=== PATIENT | female | born 1995 | race Caucasian/White ===

== ENCOUNTER 2017-05-13 09:47 | Day surgery (SDC) | payer BC, OTHER, MEDICAID ==
[~2017-05-13] VITALS: Ht 170.2 cm; Wt 84.1 kg
[~2017-05-13 09:47] MED LIST: /ACETCOD2T PO; /MOM400 PO; ACET50TA PO; ANUS2.5C2 PR; COLA50CA3 PO; IBUP600T26 PO
[2017-05-13 10:24] LABS: CALCIUM OXALATE CRYSTALS SMALL
--- NOTE | 2017-05-13 12:18 | REP ---
CT abdomen and pelvis without IV or oral contrast: Renal stone protocol. History: Right-sided flank pain. No comparison study. CT findings: Preliminary digital station repairer radiograph is unremarkable. The lung bases are clear on axial CT images. The liver and the spleen are normal in size and homogeneous in texture. There is a focal calcified gallstone in the dependent portion the gallbladder. This gallstone measures 3 mm in diameter. No pancreatic abnormality is seen. No adrenal lesion is observed. There is a 4 mm calculus in the lower pole of the left kidney. No hydronephrosis is noted on the left. There is moderate right-sided hydronephrosis and hydroureter. There is a 5 mm obstructing right mid ureteral calculus at the level of the L4 vertebral body in the right ureter. No bladder calculus is seen. No uterine or ovarian abnormality is observed. No free fluid is seen. A normal appendix is observed. No abdominal wall defect is seen. No bony destructive lesion seen. Impression: 1. Moderate right-sided hydronephrosis and hydroureter due to a 5 mm right mid ureteral calculus at the level of the L4 vertebral body. 2. Intrarenal calculus lower pole left kidney, 4 mm in diameter, no left-sided hydronephrosis. 3. Cholelithiasis. Signed by Tuan Mcfarland MD 05/13/2017 01:26 P
[2017-05-13] MEDS ORDERED: NS 1,000 ML IV ONE (13:15)
[2017-05-13] MEDS ORDERED: cefTRIAXone SOD 1 GM in D5W 50 ML IV ONE (13:15)
[2017-05-13 13:50] LABS: BASO # 0.1 10^3/uL (0.0-0.2); BASO % 0.4 % (0.0-1.0); EOS # 0.2 10^3/uL (0.0-0.50); EOS % 1.3 % (0.0-3.0); IMMATURE GRANULOCYTE % 0.3 % (0-0); LYMPH # 3.1 10^3/uL (1.5-6.5); LYMPH % 22.5 % (24.0-44.0); MEAN CORPUSCULAR HEMOGLOBIN 27.4 pg (27.0-33.0); MEAN CORPUSCULAR HGB CONC 33.5 g/dl (32.0-36.5); MEAN CORPUSCULAR VOLUME 81.9 fl (80.0-96.0); MONO # 0.6 10^3/uL (0.0-0.8); MONO % 4.5 % (0.0-5.0); NEUTROPHILS # 9.6 10^3/uL (1.8-7.7); PLATELET COUNT, AUTOMATED 263 10^3/uL (150-450); RED CELL DISTRIBUTION WIDTH 13.4 % (11.5-14.5); WHITE BLOOD COUNT 13.5 10^3/uL (4.0-10.0)
[2017-05-13 14:06] LABS: ANION GAP 8 MEQ/L (8-16); BLOOD UREA NITROGEN 10 MG/DL (7-18); CARBON DIOXIDE LEVEL 26 MEQ/L (21-32); CHLORIDE LEVEL 106 MEQ/L (98-107); CREATININE FOR GFR 0.73 MG/DL (0.55-1.02); GLOMERULAR FILTRATION RATE > 60.0 (>60); GLUCOSE, FASTING 83 MG/DL (70-105); SODIUM LEVEL 140 MEQ/L (136-145)
--- NOTE | 2017-05-13 14:35 | ER ---
DATE OF CONSULTATION: 05/13/2017 This 21-year-old female was evaluated in consultation as requested by Dr. Dueñas on 05/13/2017 for her first episode of right renal colic. She developed her first episode of right renal colic overnight, plus/minus dysuria. Prior to presentation, she has a history of recurrent lower urinary tract infections (5 per year). At baseline, there is no history of voiding symptoms, gross hematuria, urinary tract infection, urolithiasis, flank pain, or constitutional symptoms. Past medical history is unremarkable. Review of systems negative for diabetes, hypertension, cardiac, or pulmonary pathology, thyroid problems, headaches, epilepsy, CVA, glaucoma, peptic ulcer disease, urolithiasis, cholelithiasis or blood borne diseases. She is on no medications. She is allergic to MACROBID. Socially, she is and has two children. She is a nonsmoker who consumes alcohol socially. Family history is significant for lung cancer and myocardial infarction on the maternal side. General examination revealed a comfortable individual. Her heart rate was 86, respiratory rate was 18, blood pressure was 131/75 and temperature was 98.6 degrees Fahrenheit. Palpation of the head and neck failed to reveal the presence of lymphadenopathy. Auscultation of the chest was clear, normal heart sounds. Examination of the back and abdomen were benign. A urinalysis (05/13/2017) demonstrated 2+ microhematuria, positive nitrites, 3+ leukocytes with a pH of 6.0. A urine beta hCG determination (05/13/2017) is negative. Computed tomography of the abdomen and pelvis without intravenous contrast (05/13/2017) demonstrated a right midureter 5 mm calculus and a left lower pole 4 mm calculus. Moderate right hydroureteronephrosis was noted. ASSESSMENT: 1. Right midureter calculus. 2. Left lower pole renal calculus. 3. Question of urinary tract infection. PLAN: The above findings were discussed with the patient, her family and emergency department providers. Following nothing by mouth status, cystoscopy, right retrograde ureteropyelography and double J stent insertion will be performed. A urine specimen for culture and sensitivity as well as serum hematologic and biochemical indices determination are requested. Intravenous ceftriaxone was provided by the emergency department. Following the procedure, she may be discharged home with ciprofloxacin 500 mg by mouth twice a day and will followup with Alen Thomas MD in one week with a KUB radiograph. Should you require additional information, please do not hesitate to contact me. Thanking you for the confidence of your referral.
[2017-05-13] MEDS ORDERED: CONRAY-60 60% 50ML VIAL (Q9961) As Ordered ONE (14:37)
[2017-05-13] MEDS ORDERED: PROPOFOL 200 MG/20 ML VIAL As Ordered ONE (14:44)
[2017-05-13] MEDS ORDERED: LIDOCAINE 2% INJ 100 MG/5 ML SDV (FOR ANES.) As Ordered ONE (14:44)
[2017-05-13] MEDS ORDERED: fentaNYL 100 MCG/2 ML INJECTION (J3010) As Ordered ONE (14:45)
[2017-05-13] MEDS ORDERED: MIDAZOLAM INJ 2 MG/2 ML VIAL (J2250) As Ordered ONE (14:45)
[2017-05-13] MEDS ORDERED: CIPR500T19 PO (15:43)
[2017-05-13] MEDS ORDERED: PERCOCET 5MG/325MG TAB As Ordered ONE (15:47)
[2017-05-13 16:00] VITALS: BP 138/80
[2017-05-13] MEDS ORDERED: fentaNYL 100 MCG/2 ML INJECTION (J3010) IV PRN (16:00)
[2017-05-13] MEDS ORDERED: ONDANSETRON 4MG/2ML VIAL (J2405) IV PRN ×2 (16:00)
[2017-05-13] MEDS ORDERED: LR 1,000 ML IV SCH ×2 (16:00)
[2017-05-13] MEDS ORDERED: PERCOCET 5MG/325MG TAB PO PRN (16:00)
[2017-05-13 16:30] VITALS: BP 135/79
--- NOTE | 2017-05-14 05:38 | REP ---
Retrograde pyelogram: Six views. History: Retrograde stent placement in the OR on the right side. 14 seconds of fluoroscopy time is reported. Findings: A sequence of six last image hold fluoroscopic spot radiographs of the abdomen document double pigtail right ureteral stent placement after ureteral cannulation and contrast injection. Signed by Tuan Mcfarland MD 05/14/2017 08:42 A
--- NOTE | 2017-05-14 05:53 | RO ---
DATE OF PROCEDURE: 05/13/2017 PREOPERATIVE DIAGNOSES: 1. Right mid ureter calculus. 2. Urinary tract infection. POSTOPERATIVE DIAGNOSES: 1. Right proximal ureter calculus. 2. Urinary tract infection. PROCEDURE: Cystoscopy, right retrograde ureteropyelography, 6 [place] Martin JJ stent insertion, fluoroscopy. SURGEON: Dr. Len Kaur ROCK CLIMBING INSTRUCTOR: None. ANESTHESIA: Monitored anesthesia care (MAC). COMPLICATIONS: None. ESTIMATED BLOOD LOSS: Zero mL. PROCEDURE: In lithotomy position, the patient was prepped and draped in the usual fashion. Plain fluoroscopy of the upper urinary tract failed to confirm the presence of a radiopaque calculus. A 21 [place] rigid Olympus cystoscope was advanced into the urinary bladder under direct vision. A urine specimen for culture and sensitivity was obtained. Rios-cystoscopy revealed normal ureteric orifices bilaterally and normal urothelium with no evidence of tumor, active bleeding, or urolithiasis. A normal bladder neck and urethra were noted. A 5 [place] open ended ureteral catheter was used to intubate the right ureteric orifice. Retrograde ureteropyelography confirmed a normal caliber distal and mid ureter with proximal ureter filling defect. Proximal to this, mild hydroureteronephrosis was noted. The retrograde was performed gently to minimize the risk of pyelovenous backflow. Under fluoroscopy, a 0.035 Glidewire was advanced up in the right renal pelvis under fluoroscopy. The 5 [place] open ended ureteral catheter was removed and a 6 [place] Martin JJ stent was advanced under fluoroscopy and direct vision. Its position was confirmed. Prior to removal of the instruments, the bladder was drained. At the conclusion of the procedure, sponge and instrument counts were correct. Estimated blood loss for the procedure was zero mL. In the recovery room, the patient was alert and stable. DISPOSITION: Exit prescription (ciprofloxacin) provided. KUB radiograph and office visit with William in 1 week.
[2017-05-30] MEDS ORDERED: FLOM5CAP PO (08:16)
[2017-05-30] MEDS ORDERED: PERC5TAB12 PO (08:16)
[2017-05-30] MEDS ORDERED: NORE0.353 PO (08:16)
== END 2017-05-13 16:00 | disposition home or self-care (01) ==
LOC: M ED 09:47 → M SDC 13:50
PROVIDERS: ATTEND Urology
DX: N20.1 Calculus of ureter (principal); N39.0 Urinary tract infection, site not specified; Z88.8 Allergy status to other drugs, medicaments and biological substances
CPT/HCPCS: 52332; 74176; 74420; 80048; 81001; 81025; 85025; 87088; 87186; 96374; 99284; C2617; J0696; J2250; J3010; Q9961

== ENCOUNTER 2017-06-06 06:17 | Day surgery (SDC) | payer BC, OTHER, MEDICAID ==
[~2017-06-06] VITALS: Ht 170.2 cm; Wt 83.6 kg
[~2017-06-06 06:17] MED LIST changes: +CIPR500T19 PO; +FLOM5CAP PO; +NORE0.353 PO; +PERC5TAB12 PO
[2017-06-06] MEDS ORDERED: LR 1,000 ML IV SCH ×2 (06:30→09:30)
[2017-06-06 07:05] LABS: CONTROL LINE UCG INT CTR LINE PRESENT
[2017-06-06] MEDS ORDERED: CONRAY-60 60% 50ML VIAL (Q9961) As Ordered ONE (07:36)
[2017-06-06] MEDS ORDERED: dexameTHASONE 4 MG/ML 1ML VIAL (J1100) As Ordered ONE (08:03)
[2017-06-06] MEDS ORDERED: LIDOCAINE 2% INJ 100 MG/5 ML SDV (FOR ANES.) As Ordered ONE (08:03)
[2017-06-06] MEDS ORDERED: fentaNYL 100 MCG/2 ML INJECTION (J3010) As Ordered ONE ×2 (08:03→09:13)
[2017-06-06] MEDS ORDERED: MIDAZOLAM INJ 2 MG/2 ML VIAL (J2250) As Ordered ONE (08:03)
[2017-06-06] MEDS ORDERED: PROPOFOL 200 MG/20 ML VIAL As Ordered ONE (08:03)
[2017-06-06] MEDS ORDERED: ONDANSETRON 4MG/2ML VIAL (J2405) As Ordered ONE ×2 (08:13→09:13)
[2017-06-06] MEDS ORDERED: PERCOCET 5MG/325MG TAB As Ordered ONE (09:13)
[2017-06-06] MEDS: PERCOCET 5MG/325MG TAB PO PRN ×2 (09:15→09:45)
[2017-06-06] MEDS: fentaNYL 100 MCG/2 ML INJECTION (J3010) IV PRN ×4 (09:18→09:33)
[2017-06-06] MEDS ORDERED: PERCOCET 5MG/325MG TAB PO PRN ×2 (09:30)
[2017-06-06] MEDS ORDERED: ONDANSETRON 4MG/2ML VIAL (J2405) IV PRN (09:30)
--- NOTE | 2017-06-06 09:34 | REP ---
RETROGRADE PYELOGRAM: 06/06/2017. Clinical history: Nephrolithiasis. Findings: Seven images from C-arm fluoroscopy provided to Dr. Thomas of the urology division in this patient with nephrolithiasis. Initial images show a wire passing through the right ureter to the renal pelvis at the cannula in the ureter. The third image shows a wire and cannula removed on the right side and a wire passing into the left renal pelvis through which a cannula was passed. Contrast injected into the left collecting system and a double pigtail stent now present in the left ureter, coiled proximally in a nondilated renal pelvis and distally in the bladder. Fluoroscopy time 18 seconds. Signed by Milton Guzman MD 06/06/2017 01:27 P
[2017-06-06 10:42] VITALS: BP 140/86
--- NOTE | 2017-06-07 13:53 | RO ---
DATE OF PROCEDURE: 06/06/2017 PREPROCEDURE DIAGNOSIS: Bilateral kidney stones. POSTPROCEDURE DIAGNOSIS: Bilateral kidney stones. PROCEDURE: Cystoscopy, bilateral ureteroscopy with right-sided laser lithotripsy and bilateral basket extraction of stones, bilateral retrograde pyelogram with intraoperative interpretation of images, left ureteral stent placement, right ureteral stent removal. SURGEON: Alen Thomas MD CHANNELING MACHINE OPERATOR: None. ANESTHESIA: General. OPERATIVE INDICATIONS: This is a 21-year-old female who was brought to the operating room a few weeks ago for right-sided ureteral stent placement for obstructing proximal 5 mm stone and a urinary tract infection. Also, of note, she had a 5 mm left-sided kidney stone, which she thinks has dropped into the ureter recently as she is not having left flank pain. Decision was made to take her to the operating room today to try and take care of the stones on both sides. DESCRIPTION OF PROCEDURE: The patient was brought to the operating room and general anesthesia was induced. Prophylactic antibiotics were infused. She was then placed in dorsal lithotomy position, prepped and draped in the usual sterile fashion. A rigid cystoscope was inserted into the urethral meatus and advanced to the bladder. Once it was in the bladder, the previously placed stent was seen. The stent was then grasped and withdrawn from the right ureter until the distal end of the stent was seen protruding from the urethral meatus. I then advanced the wire up the right ureteral stent up the right collecting system. The stent was removed leaving the wire in place. At this point, I advanced a ureteral access sheath over the wire up the right collecting system and then, the stylette was removed and the wire was secured to the drape to serve as a safety wire. I then went up the ureteral access sheath with a flexible ureteroscope and I did not see any stones within the ureter. Within the lower pole calyx of the right kidney a 5 mm stone was seen. Given the shape of the stone, I had to fragment it into two different pieces using a 200 micron laser fiber and then both those pieces were removed with a basket. No other stones were seen within the right kidney. A retrograde pyelogram was performed and was negative for hydronephrosis or extravasation. Since the stent was in place for a few weeks, the ureter appeared to be sufficiently dilated and there was no scarring. I, therefore decided not to leave a new stent. At this point, the ureteroscope was withdrawn along with the access sheath, and no additional stones were seen within the ureter. At this point, I turned my attention to the left collecting system. A wire was advanced up the left collecting system. I then advanced the flexible ureteroscope up the left ureter and into the kidney. No stones were seen within the ureter. Within the kidney, a 5 mm stone was seen in the lower pole calyx. The stone was then grasped with a basket and it was removed in one piece. I examined the rest of the kidney and no stones were seen within the left kidney. A retrograde pyelogram was performed and it was negative for hydronephrosis or extravasation. As her ureter was not as dilated on this side, I did decide to leave the stent. At this point, the ureteroscope was withdrawn and the previously placed wire was utilized to advance a 6-[place] x 22-32 cm JJ ureteral stent up the left collecting system. The wire was then removed and there were adequate curls of the stent in the left renal pelvis and in the bladder. The bladder was then emptied of all fluid and this marked the conclusion of the procedure. The patient was then taken out of dorsal lithotomy position, awakened from anesthesia and transported to the recovery room in stable condition. ESTIMATED BLOOD LOSS: 0 mL. INTRAOPERATIVE COMPLICATIONS: None. SPECIMENS: Kidney stones. PLAN: The patient will followup in clinic in a few weeks for stent removal. MARCELA
== END 2017-06-06 11:04 | disposition home or self-care (01) ==
LOC: M SDC 06:17
PROVIDERS: ATTEND Urology
DX: N20.0 Calculus of kidney (principal); N39.0 Urinary tract infection, site not specified; R00.2 Palpitations; K21.9 Gastro-esophageal reflux disease without esophagitis; F41.9 Anxiety disorder, unspecified; Z79.899 Other long term (current) drug therapy; Z88.1 Allergy status to other antibiotic agents
CPT/HCPCS: 52332; 52352; 52356; 74420; 82360; 84703; 88300; C1769; C1894; C2617; J1100; J2250; J2405; J3010; Q9961

== ENCOUNTER 2017-10-09 14:02 | Emergency (ER) | payer BC, OTHER, MEDICAID ==
[2017-10-09] MEDS: NS 1,000 ML IV (15:15)
[2017-10-09] MEDS ORDERED: KETOROLAC 30 MG/ML VIAL (J1885) IV (15:15)
[2017-10-09 15:26] LABS: KETONE, URINE AUTO RFX NEGATIVE (NEGATIVE); LEUKOCYTE ESTERASE UR AUTO RFX NEGATIVE (NEGATIVE); MUCUS, URINE RFX SMALL (NEGATIVE); NITRITE, URINE AUTO RFX NEGATIVE (NEGATIVE); RBC, URINE AUTO RFX 1 /HPF (0-3); SPECIFIC GRAVITY UR AUTO RFX 1.009 (1.002-1.035); SQUAM EPITHELIAL CELL UR AURFX 0 /HPF (0-6); WBC, URINE AUTO RFX 0 /HPF (0-3)
[2017-10-09 15:40] LABS: BASO # 0.1 10^3/uL (0.0-0.2); BASO % 0.6 % (0.0-1.0); EOS # 0.3 10^3/uL (0.0-0.50); EOS % 2.5 % (0.0-3.0); HEMATOCRIT 40.5 % (36.0-47.0); HEMOGLOBIN 13.7 g/dl (12.0-16.0); IMMATURE GRANULOCYTE % 0.3 % (0-3.0); LYMPH # 3.5 10^3/uL (1.5-6.5); LYMPH % 27.6 % (24.0-44.0); MEAN CORPUSCULAR HEMOGLOBIN 27.4 pg (27.0-33.0); MEAN CORPUSCULAR HGB CONC 33.8 g/dl (32.0-36.5); MONO # 0.7 10^3/uL (0.0-0.8); MONO % 5.8 % (0.0-5.0); NEUTROPHILS % 63.2 % (36.0-66.0); PLATELET COUNT, AUTOMATED 285 10^3/uL (150-450); RED CELL DISTRIBUTION WIDTH 13.1 % (11.5-14.5); WHITE BLOOD COUNT 12.6 10^3/uL (4.0-10.0)
[2017-10-09] MEDS ORDERED: MORPHINE 2 MG/ML 1ML SYRINGE (J2270) As Ordered (15:44)
[2017-10-09] MEDS: MORPHINE 2 MG/ML 1ML SYRINGE (J2270) IV (15:51)
[2017-10-09 16:12] LABS: ALBUMIN 4.2 GM/DL (3.2-5.2); ALKALINE PHOSPHATASE 80 U/L (45-117); ALT/SGPT 23 U/L (12-78); ANION GAP 8 MEQ/L (8-16); AST/SGOT 11 U/L (7-37); BILIRUBIN,TOTAL 0.5 MG/DL (0.2-1.0); BLOOD UREA NITROGEN 10 MG/DL (7-18); CALCIUM LEVEL 9.1 MG/DL (8.5-10.1); CARBON DIOXIDE LEVEL 27 MEQ/L (21-32); CHLORIDE LEVEL 106 MEQ/L (98-107); CREATININE FOR GFR 0.72 MG/DL (0.55-1.30); GLOMERULAR FILTRATION RATE > 60.0 (>60); GLUCOSE, FASTING 87 MG/DL (70-100); LIPASE 131 U/L (73-393); POTASSIUM SERUM 3.7 MEQ/L (3.5-5.1); SODIUM LEVEL 141 MEQ/L (136-145); TOTAL PROTEIN 7.7 GM/DL (6.4-8.2)
== END 2017-10-09 17:04 | disposition home or self-care (01) ==
LOC: M ED 14:02
DX: N23 Unspecified renal colic (principal); K80.20 Calculus of gallbladder without cholecystitis without obstruction; Z87.442 Personal history of urinary calculi; Z88.1 Allergy status to other antibiotic agents
CPT/HCPCS: J2270

== ENCOUNTER → 2019-01-13 | Outpatient (CLI) | payer BC, OTHER ==
[~2019-01-13] MED LIST changes: -/ACETCOD2T PO; -/MOM400 PO; +ACET1TAB15 PO; -ACET50TA PO; +FLOM0.4C39 PO; -FLOM5CAP PO; +MAPA500T17 PO; +MILK10SU PO
--- NOTE | 2019-01-14 09:25 | REP ---
Focused bilateral breast sonography: History: Palpable abnormality at 12 o'clock in each breast. Sonographic findings: Scanning about the 12 o'clock area of each breast is performed. Heterogeneous fibroglandular background echotexture is seen. No cyst, mass, acoustic shadowing or architectural distortion is seen. Impression: BIRADS category one negative bilateral breast sonographic findings. Clinical follow-up is advised. This patient's estimated Tyrer-Cuzick lifetime risk assessment for the breast cancer is 12.2 %. Electronically Signed by Tuan Mcfarland MD 01/14/2019 09:17 A
== END ==
LOC: M RAD 17:50
PROVIDERS: ATTEND Advanced Practice Midwife
DX: N64.89 Other specified disorders of breast (principal)

== ENCOUNTER 2020-02-24 13:30 | Emergency (ER) | payer BC, OTHER | END 2020-02-24 14:50 | disposition left against medical advice (07) | LOC: M ED 13:30 | DX: Z53.20 Procedure and treatment not carried out because of patient's decision for unspecified reasons (principal) ==

== ENCOUNTER 2021-07-28 06:38 | Emergency (ER) | payer BC, OTHER ==
[~2021-07-28] VITALS: Ht 167.6 cm; Wt 88.6 kg
--- NOTE | 2021-07-28 08:05 | REP ---
INDICATION: slip, fall, twist COMPARISON: None. TECHNIQUE: AP, lateral, bilateral oblique views. FINDINGS: Lateral swelling. AP view demonstrates small focus of irregularity along the medial contour of the talus which is nonspecific but should be correlated with physical examination to exclude a subtle injury. Ankle mortise is otherwise intact and normal in appearance. No further acute fracture or dislocation is identified. Prominent os trigonum identified on lateral radiograph. IMPRESSION: Lateral swelling. As above. <Electronically signed by Rikki Cash > 07/28/21 [id number]
[2021-07-28 09:07] VITALS: BP 132/88
== END 2021-07-28 09:08 | disposition home or self-care (01) ==
LOC: M ED 06:38
DX: S93.401A Sprain of unspecified ligament of right ankle, initial encounter (principal); W18.49XA Other slipping, tripping and stumbling without falling, initial encounter; Y92.009 Unspecified place in unspecified non-institutional (private) residence as the place of occurrence of the external cause; Y93.9 Activity, unspecified; Y99.9 Unspecified external cause status; F17.200 Nicotine dependence, unspecified, uncomplicated; Z88.8 Allergy status to other drugs, medicaments and biological substances

== ENCOUNTER 2023-04-05 08:10 | Emergency (ER) | payer OTHER ==
[~2023-04-05] VITALS: Ht 167.6 cm; Wt 88.0 kg
[2023-04-05] MEDS ORDERED: IBUPROFEN 600MG TAB PO ONE (10:20)
[2023-04-05] MEDS ORDERED: dexAMETHasone 4 MG TAB PO ONE (10:20)
[2023-04-05] MEDS ORDERED: ACETAMINOPHEN 500 MG TAB PO ONE (10:20)
[2023-04-05] MEDS ORDERED: NEOM1SUS10 OTIC (10:27)
[2023-04-05 10:35] VITALS: BP 146/96; TEMP 98; O2SAT 98
== END 2023-04-05 10:37 | disposition home or self-care (01) ==
LOC: M ED 08:10
DX: H60.92 Unspecified otitis externa, left ear (principal); Z79.2 Long term (current) use of antibiotics

== ENCOUNTER → 2023-11-14 | Outpatient (REF) | payer MEDICAID ==
[~2023-11-14] MED LIST changes: +NEOM1SUS10 OTIC
[2023-11-15 12:06] LABS: Trichomonas vaginalis (AMP) NOT DETECTED (NEGATIVE)
[2023-11-15 12:30] LABS: GC DNA AMPLIFICATION NEGATIVE (NEGATIVE)
== END ==
LOC: M LAB REF 09:24
PROVIDERS: ATTEND Physician Assistant
DX: Z20.2 Contact with and (suspected) exposure to infections with a predominantly sexual mode of transmission (principal)

== ENCOUNTER 2023-12-04 19:55 | Emergency (ER) | payer MEDICAID ==
[~2023-12-04] VITALS: Ht 167.6 cm; Wt 85.0 kg
[2023-12-04 19:56] VITALS: BP 167/95; TEMP 97.3; O2SAT 100
== END 2023-12-04 21:59 | disposition left against medical advice (07) ==
LOC: M ED 19:55
DX: Z53.21 Procedure and treatment not carried out due to patient leaving prior to being seen by health care provider (principal)

== ENCOUNTER 2024-05-23 20:03 | Emergency (ER) | payer MEDICAID ==
[~2024-05-23] VITALS: Ht 167.6 cm; Wt 92.3 kg
[2024-05-23 20:06] VITALS: BP 145/79; TEMP 100.2; O2SAT 99
== END 2024-05-23 22:47 | disposition left against medical advice (07) ==
LOC: M ED 20:03
DX: Z53.21 Procedure and treatment not carried out due to patient leaving prior to being seen by health care provider (principal)

== ENCOUNTER 2025-05-25 10:32 | Emergency (ER) | payer MEDICAID, OTHER ==
[~2025-05-25] VITALS: Ht 167.6 cm; Wt 80.7 kg
[~2025-05-25 10:32] MED LIST changes: -FLOM0.4C39 PO; +TAMS-18 PO
[2025-05-25 11:31] LABS: KETONE, URINE AUTO RFX NEGATIVE (NEGATIVE); LEUKOCYTE ESTERASE UR AUTO RFX NEGATIVE (NEGATIVE); MUCUS, URINE RFX LARGE (NEGATIVE); NITRITE, URINE AUTO RFX NEGATIVE (NEGATIVE); RBC, URINE AUTO RFX TNTC /HPF (0-3); SQUAM EPITHELIAL CELL UR AURFX 2 /HPF (0-6); WBC, URINE AUTO RFX 4 /HPF (0-3)
[2025-05-25 12:54] LABS: BASO # 0.1 10^3/uL (0.0-0.2); BASO % 0.4 % (0.0-1.0); EOS # 0.2 10^3/uL (0.0-0.5); EOS % 1.1 % (0.0-3.0); LYMPH # 2.2 10^3/uL (1.5-5.0); LYMPH % 15.8 % (24.0-44.0); MONO # 0.7 10^3/uL (0.0-0.8); MONO % 5.2 % (2.0-8.0); NEUTROPHILS # 10.9 10^3/uL (1.5-8.5); NEUTROPHILS % 77.1 % (36.0-66.0); PLATELET COUNT, AUTOMATED 294 10^3/uL (150-450)
[2025-05-25 13:12] LABS: HCG, SERUM QUANTITATIVE < 2.6 MIU/ML (<4.2)
[2025-05-25 13:13] LABS: CALCIUM LEVEL 9.1 MG/DL (8.5-10.1); CARBON DIOXIDE LEVEL 26 MMOL/L (20-31); CHLORIDE LEVEL 109 MMOL/L (98-107); CREATININE FOR GFR 0.75 MG/DL (0.55-1.30); GLOMERULAR FILTRATION RATE > 90.0 (>60); POTASSIUM SERUM 4.3 MMOL/L (3.5-5.1); SODIUM LEVEL 143 MMOL/L (136-145)
[2025-05-25 16:06] VITALS: BP 156/98; TEMP 98.6; O2SAT 98
== END 2025-05-25 16:07 | disposition home or self-care (01) ==
LOC: M ED 10:32
DX: N93.9 Abnormal uterine and vaginal bleeding, unspecified (principal); F41.9 Anxiety disorder, unspecified; Z88.8 Allergy status to other drugs, medicaments and biological substances; Z79.2 Long term (current) use of antibiotics

== ENCOUNTER → 2025-06-02 | Outpatient (REF) | payer OTHER ==
[2025-06-03 12:54] LABS: Trichomonas vaginalis (AMP) NOT DETECTED (NEGATIVE)
[2025-06-03 13:18] LABS: GC DNA AMPLIFICATION NEGATIVE (NEGATIVE)
== END ==
LOC: M PLALAB 16:30
PROVIDERS: ATTEND Physician Assistant
DX: N93.9 Abnormal uterine and vaginal bleeding, unspecified (principal)

== ENCOUNTER → 2025-06-08 | Outpatient (CLI) | payer OTHER ==
[2025-06-08 10:14] LABS: PLATELET COUNT, AUTOMATED 294 10^3/uL (150-450)
[2025-06-08 10:53] LABS: INR 1.06; PROLACTIN 6.27 NG/ML
[2025-06-09 08:42] LABS: SEX HORMONE BINDING GLOBULIN 41.0 nmol/L (17-124)
[2025-06-13 16:46] LABS: TESTOSTERONE FREE (DIRECT) 3.0 pg/mL (0.1-6.4); TESTOSTERONE TOTAL FOR T&D 20.0 ng/dL (2-45)
[2025-06-17 23:54] LABS: 17 HYDROXY PROGESTERONE 187.0 ng/dL
== END ==
LOC: M PLALAB 09:32
PROVIDERS: ATTEND Physician Assistant
DX: N93.9 Abnormal uterine and vaginal bleeding, unspecified (principal)

== ENCOUNTER → 2025-06-30 | Outpatient (REF) | payer OTHER ==
[2025-07-02 18:27] LABS: HPV APTIMA Not Detected (Not Detected)
== END ==
LOC: M SFHCWAGY 17:49
PROVIDERS: ATTEND Physician Assistant
DX: Z01.419 Encounter for gynecological examination (general) (routine) without abnormal findings (principal)